=== PATIENT | male | born 1975 | race Two or more races ===

== ENCOUNTER 2023-04-16 15:11 | Emergency (ER) | payer OTHER ==
[~2023-04-16] VITALS: Ht 182.9 cm; Wt 102.3 kg
[2023-04-16] MEDS ORDERED: SUMA25TA15 PO (15:40)
[2023-04-16] MEDS ORDERED: OMEP10 PO (15:40)
[2023-04-16] MEDS ORDERED: CITA10TA99 PO (15:40)
[2023-04-16 18:16] VITALS: BP 132/74; PULSE 81; RESP 18
== END 2023-04-16 18:17 | disposition home or self-care (01) ==
LOC: EMS 15:13
DX: S92.351A Displaced fracture of fifth metatarsal bone, right foot, initial encounter for closed fracture (principal); K21.9 Gastro-esophageal reflux disease without esophagitis; G43.909 Migraine, unspecified, not intractable, without status migrainosus; W19.XXXA Unspecified fall, initial encounter; Y93.89 Activity, other specified; Y92.89 Other specified places as the place of occurrence of the external cause; Y99.8 Other external cause status
CPT/HCPCS: 29515; 99284; 73610-TC; 73630-TC; Z7502